=== PATIENT | male | born 1995 | race Hispanic/Latino ===

== ENCOUNTER 2022-02-05 21:50 | Emergency (ER) | payer SELFPAY | END 2022-02-06 02:11 | disposition home or self-care (01) | LOC: ERS 21:50 | DX: S32.010A Wedge compression fracture of first lumbar vertebra, initial encounter for closed fracture (principal); F17.200 Nicotine dependence, unspecified, uncomplicated; W10.9XXA Fall (on) (from) unspecified stairs and steps, initial encounter | CPT/HCPCS: 99283 ==